=== PATIENT | female | born 1945 | race Two or more races ===

== ENCOUNTER 2020-02-05 07:24 | Outpatient (CLI) | payer OTHER | END 2020-02-05 07:32 | disposition home or self-care (01) | LOC: LAB 07:24 | PROVIDERS: ATTEND Orthopaedic Surgery | DX: E56.1 Deficiency of vitamin K (principal); E55.9 Vitamin D deficiency, unspecified; M85.88 Other specified disorders of bone density and structure, other site ==

== ENCOUNTER 2020-11-14 05:45 | Day surgery (SDC) | payer OTHER | END 2020-11-14 10:00 | disposition home or self-care (01) | LOC: AMB-ENDOS 05:45 | PROVIDERS: ATTEND Colon & Rectal Surgery | DX: K62.89 Other specified diseases of anus and rectum (principal); K64.0 First degree hemorrhoids; Z20.822 Contact with and (suspected) exposure to COVID-19 ==